=== PATIENT | male | born 1970 | race Caucasian/White ===

== ENCOUNTER 2020-07-19 15:04 | Emergency (ER) | payer OTHER ==
[~2020-07-19] VITALS: Ht 172.7 cm; Wt 99.8 kg
[~2020-07-19 15:04] MED LIST: HYDROCODON-ACE1 EAC8 PO
[2020-07-19 15:11] VITALS: BP 138/79
[2020-07-19] MEDS ORDERED: BACTRIM DS TAB1 EAC1 PO (15:18)
[2020-07-19] MEDS ORDERED: DIPHENHIST50 MG PO (15:18)
== END 2020-07-19 15:28 | disposition home or self-care (01) ==
LOC: M.ERS 15:04
DX: L03.115 Cellulitis of right lower limb (principal)